=== PATIENT | female | born 1960 | race Two or more races ===

== ENCOUNTER 2019-04-06 05:42 | Day surgery (SDC) | payer OTHER ==
[~2019-04-06 05:42] MED LIST: PROTONIX20 MG PO
[2019-04-06] MEDS ORDERED: PERCOCET 5-3251 EACH PO (08:20)
== END 2019-04-06 11:05 | disposition home or self-care (01) ==
LOC: CIR.AMB 05:42
DX: C19 Malignant neoplasm of rectosigmoid junction (principal)
CPT/HCPCS: 36561; C1751

== ENCOUNTER 2019-08-06 07:14 | Day surgery (SDC) | payer OTHER ==
[~2019-08-06 07:14] MED LIST changes: +PERCOCET 5-3251 EACH PO
== END 2019-08-06 10:20 | disposition home or self-care (01) ==
LOC: AMB-ENDOS 07:14
DX: K62.89 Other specified diseases of anus and rectum (principal)

== ENCOUNTER 2019-09-10 11:16 | Inpatient (IN) | payer OTHER ==
[~2019-09-10] VITALS: Ht 162.6 cm; Wt 65.8 kg
[2019-09-17] MEDS ORDERED: OMEPRAZOLE20 MG PO (15:20)
[2019-09-17] MEDS ORDERED: GAS-X ULTRA ST180 MG PO (15:20)
[2019-09-17] MEDS ORDERED: CARAFATE1 GM/10 ML PO (15:20)
[2019-09-17] MEDS ORDERED: PERCOCET 5-3251 EACH PO (15:20)
[2019-09-17] MEDS ORDERED: DICY20TA PO (15:20)
== END 2019-09-17 17:07 | disposition home or self-care (01) | DRG 331 ==
LOC: O/R 09-11 06:00 → SURH 09-11 07:00 → EDSTATUS 09-11 09:27 → CIR.AMB 09-11 09:27 → SURH 09-11 13:55
PROVIDERS: ADMIT Surgery
PROC: 07BB4ZX Excision of Mesenteric Lymphatic, Percutaneous Endoscopic Approach, Diagnostic (ICD-10-PCS; 2019-09-11)
PROC: 0D1B4Z4 Bypass Ileum to Cutaneous, Percutaneous Endoscopic Approach (ICD-10-PCS; 2019-09-11)
PROC: 0DBK4ZX Excision of Ascending Colon, Percutaneous Endoscopic Approach, Diagnostic (ICD-10-PCS; 2019-09-11)
PROC: 0DBM4ZX Excision of Descending Colon, Percutaneous Endoscopic Approach, Diagnostic (ICD-10-PCS; 2019-09-11)
PROC: 0DJD8ZZ Inspection of Lower Intestinal Tract, Via Natural or Artificial Opening Endoscopic (ICD-10-PCS; 2019-09-11)
PROC: 0DTN4ZZ Resection of Sigmoid Colon, Percutaneous Endoscopic Approach (ICD-10-PCS; principal; 2019-09-11 07:00)
DX: C19 Malignant neoplasm of rectosigmoid junction (principal); K91.0 Vomiting following gastrointestinal surgery; R59.0 Localized enlarged lymph nodes; K63.89 Other specified diseases of intestine

== ENCOUNTER 2019-11-20 10:01 | Outpatient (CLI) | payer OTHER ==
[~2019-11-20 10:01] MED LIST changes: +CARAFATE1 GM/10 ML PO; +DICY20TA PO; +GAS-X ULTRA ST180 MG PO; +OMEPRAZOLE20 MG PO
== END 2019-11-20 10:14 | disposition home or self-care (01) ==
LOC: RX STUDY 10:01
PROVIDERS: ATTEND Surgery
DX: R59.0 Localized enlarged lymph nodes (principal); K62.5 Hemorrhage of anus and rectum; C20 Malignant neoplasm of rectum

== ENCOUNTER 2019-12-06 15:21 | Inpatient (IN) | payer OTHER ==
[~2019-12-06] VITALS: Ht 162.6 cm; Wt 62.1 kg
[2019-12-28] MEDS ORDERED: OMEPRAZOLE MAGN20 MG PO (11:31)
[2019-12-28] MEDS ORDERED: INTESTINEX680 M1 PO (11:31)
== END 2019-12-28 13:04 | disposition home or self-care (01) | DRG 349 ==
LOC: RECOVERY 12-21 10:00 → O/R 12-25 05:42 → SURH 12-25 05:42 → RECOVERY 12-25 10:30 → SURH 12-25 13:55 → RECOVERY 12-25 15:30 → SURH 12-28 13:04
PROVIDERS: ADMIT Surgery; ATTEND Surgery
PROC: 0DBB4ZZ Excision of Ileum, Percutaneous Endoscopic Approach (ICD-10-PCS; principal; 2019-12-25 15:30)
DX: Z43.2 Encounter for attention to ileostomy (principal); Z85.048 Personal history of other malignant neoplasm of rectum, rectosigmoid junction, and anus; Z20.828 Contact with and (suspected) exposure to other viral communicable diseases

== ENCOUNTER 2019-12-17 13:11 | Outpatient (CLI) | payer OTHER ==
[~2019-12-17] VITALS: Ht 162.6 cm; Wt 62.1 kg
== END 2019-12-17 13:27 | disposition home or self-care (01) ==
LOC: LAB 13:11
PROVIDERS: ATTEND Surgery
DX: R59.0 Localized enlarged lymph nodes (principal); K62.5 Hemorrhage of anus and rectum; C20 Malignant neoplasm of rectum; Z20.828 Contact with and (suspected) exposure to other viral communicable diseases; I10 Essential (primary) hypertension

== ENCOUNTER 2020-11-24 05:31 | Day surgery (SDC) | payer OTHER ==
[~2020-11-24 05:31] MED LIST changes: +INTESTINEX680 M1 PO; +OMEPRAZOLE MAGN20 MG PO
== END 2020-11-24 10:00 | disposition home or self-care (01) ==
LOC: AMB-ENDOS 05:31
PROVIDERS: ATTEND Surgery
DX: D12.2 Benign neoplasm of ascending colon (principal); Z20.822 Contact with and (suspected) exposure to COVID-19

== ENCOUNTER 2021-06-12 06:00 | Day surgery (SDC) | payer OTHER ==
[2021-06-12] MEDS ORDERED: ULTRACET PO (09:06)
== END 2021-06-12 11:00 | disposition home or self-care (01) ==
LOC: CIR.AMB 06:00
PROVIDERS: ATTEND Surgery
DX: C20 Malignant neoplasm of rectum (principal); Z20.822 Contact with and (suspected) exposure to COVID-19

== ENCOUNTER 2021-09-22 17:04 | Inpatient (IN) | payer OTHER ==
[~2021-09-22] VITALS: Ht 160 cm; Wt 57.6 kg
[~2021-09-22 17:04] MED LIST changes: +ULTRACET PO
[2021-09-23] MEDS ORDERED: KETOROLAC60 MG/2 M1 (15:19)
[2021-09-23] MEDS ORDERED: OMEPRAZOLE20 MG (15:19)
== END 2021-10-03 00:02 | disposition home or self-care (01) | DRG 337 ==
LOC: ER 17:04 → ICU-2 22:59 → SURG 22:59 → SURH 22:59 → SURG 23:12 → SURH 09-23 17:59
PROVIDERS: ADMIT Surgery; ATTEND Surgery
PROC: 0DBU0ZZ Excision of Omentum, Open Approach (ICD-10-PCS; 2021-09-25)
PROC: 0DNW0ZZ Release Peritoneum, Open Approach (ICD-10-PCS; 2021-09-25)
PROC: 0DNA0ZZ Release Jejunum, Open Approach (ICD-10-PCS; 2021-09-25)
PROC: 0DN80ZZ Release Small Intestine, Open Approach (ICD-10-PCS; principal; 2021-09-25 11:15)
DX: K56.52 Intestinal adhesions [bands] with complete obstruction (principal); R10.9 Unspecified abdominal pain; R19.09 Other intra-abdominal and pelvic swelling, mass and lump; Z93.2 Ileostomy status; Z20.822 Contact with and (suspected) exposure to COVID-19